=== PATIENT | female | born 1980 | race Caucasian/White ===

== ENCOUNTER 2016-04-15 19:46 | Emergency (ER) | payer MEDICAID ==
[~2016-04-15] VITALS: Ht 157.5 cm; Wt 77.2 kg
[~2016-04-15 19:46] MED LIST: ALB0.5V INH; AMOX500C5 PO; AZIT250T81 PO; BUPR174T PO; CODE118S2 PO; CYCL10TA45 PO; DIPH25CA79 PO; HYDR-3702 PO; HYDR-3708 PO; HYDR-3811 PO; HYDR12TA3 PO; HYDR8TAB24 PO; IBP800T PO; MELO-255 PO; NF-TORA10 PO; NITR100C3 PO; NORG1TAB31 PO; PRD20T GT; PROM25TA14 PO; PS30T PO; SULF-221 PO; SUVO10TA PO
[2016-04-15] MEDS ORDERED: RIZA10TA25 PO (20:24)
[2016-04-15] MEDS ORDERED: HYDR8TAB PO (20:24)
[2016-04-15] MEDS ORDERED: BPR75T PO (20:24)
[2016-04-15] MEDS ORDERED: cefTRIAXone 1 GM (ROCEPHIN) VIAL IM ONE (20:35)
[2016-04-15] MEDS ORDERED: LIDOCAINE PF 1% (XYLOCAINE) 2 ML VIAL INJ ONE (20:40)
[2016-04-15] MEDS ORDERED: CEPH-507 PO (20:41)
[2016-04-15 20:57] VITALS: BP 150/85
[2016-06-04] MEDS ORDERED: TIZA2TAB3 PO (14:08)
[2016-06-04] MEDS ORDERED: NITR100C3 PO (15:48)
== END 2016-04-15 20:58 | disposition home or self-care (01) ==
LOC: ED 19:47
DX: L03.116 Cellulitis of left lower limb (principal)
CPT/HCPCS: 96372; 99282; J0696; J2001; 99283

== ENCOUNTER → 2016-04-22 | Outpatient (CLI) | payer MEDICAID ==
[~2016-04-22] MED LIST changes: +BPR75T PO; +CEPH-507 PO; +HYDR8TAB PO; +RIZA10TA25 PO; +TIZA2TAB3 PO
--- NOTE | 2016-04-22 17:01 | Diagnostic Imaging Report ---
INDICATION: Radiculopathy. MRI of lumbar spine obtained without IV contrast and compared to prior MRI of 11/15/14. FINDINGS: Since the previous study, patient has undergone posterior fusion with placement of disc prosthesis at L5-S1. The canal diameter at the L5-S1 level has significantly improved. There is mild bilateral neuroforaminal narrowing at L5-S1. The remainder of the disc levels appear essentially unremarkable with no disc herniation or bulge or canal or neuroforaminal narrowing. There is a normal appearance of the conus medullaris. IMPRESSION: Postoperative changes at L5-S1. There is no significant canal stenosis. There is mild bilateral neuroforaminal narrowing at L5-S1. Remaining levels appear essentially unremarkable. Dictated by: Dictated on workstation # [id number]
== END ==
LOC: RAD 15:53
PROVIDERS: ATTEND Orthopaedic Surgery
DX: M54.16 Radiculopathy, lumbar region (principal); Z98.890 Other specified postprocedural states
CPT/HCPCS: 72148

== ENCOUNTER 2016-05-21 17:11 | Emergency (ER) | payer MEDICAID ==
[~2016-05-21] VITALS: Ht 160 cm; Wt 80.6 kg
[2016-05-21] MEDS ORDERED: LIDOCAINE/EPINEPHRINE 1%-1:100,000 (XYLOCAINE) 20ML VIAL TOP ONE (17:25)
[2016-05-21] MEDS ORDERED: LIDOCAINE 1% (XYLOCAINE) 20 ML VIAL INJ ONE (17:30)
[2016-05-21] MEDS ORDERED: TETANUS, DIPTHERIA, PERTUSSIS (ADACELL) VACCINE 0.5 ML VIAL IM ONE (17:35)
[2016-05-21 18:07] VITALS: BP 124/84
== END 2016-05-21 18:08 | disposition home or self-care (01) ==
LOC: EDUNIT# 17:11 → ED 17:12
DX: S91.341A Puncture wound with foreign body, right foot, initial encounter (principal); W22.09XA Striking against other stationary object, initial encounter; Y93.01 Activity, walking, marching and hiking; Y92.009 Unspecified place in unspecified non-institutional (private) residence as the place of occurrence of the external cause
CPT/HCPCS: 10120; 28190; 90471; 90715; 99282; 99283

== ENCOUNTER 2016-06-04 13:38 | Emergency (ER) | payer MEDICAID ==
[~2016-06-04] VITALS: Ht 160 cm; Wt 78.6 kg
[2016-06-04 14:21] LABS: BILIRUBIN,URINE Negative (Negative); CLARITY,URINE Slightly Cloudy; COLOR,URINE Orange; GLUCOSE, URINE (UA) Negative (Negative); LEUKOCYTE ESTERASE ,URINE Negative (Negative); PH,URINE 5.5 (5.0 - 8.0); UROBILINOGEN,URINE 0.2 mg/dL (0.2-1.0)
[2016-06-04 14:22] LABS: BASOPHILS % (AUTO) 0 % (0-2); EOSINOPHILS # (AUTO) 0.2 10^3uL; EOSINOPHILS % (AUTO) 1 % (0-4); LYMPHOCYTES # (AUTO) 4.1 X10^3; MEAN CORPUSCULAR HEMOGLOBIN 29.4 PG (26.0-34.0); MEAN CORPUSCULAR HGB CONC 34.5 g/dL (31.0-37.0); MEAN CORPUSCULAR VOLUME 85 FL (80-100); MEAN PLATELET VOLUME 11.3 FL (6.0-9.5); MONOCYTES # (AUTO) 0.7 X10^3; MONOCYTES % (AUTO) 5 % (3-11); NEUTROPHILS # (AUTO) 8.2 X10^3; NEUTROPHILS % (AUTO) 62 % (51-67); PLATELET COUNT 241 10^3uL (150-450); WHITE BLOOD COUNT 13.17 10^3uL (4.0-11.0)
[2016-06-04 14:27] LABS: URINE CENTRIFUGED VOLUME 12 mL
--- NOTE | 2016-06-04 15:27 | NUR ---
dr krystle mann paged
[2016-06-04 16:00] VITALS: BP 159/83
== END 2016-06-04 15:54 | disposition home or self-care (01) ==
LOC: ED 13:39
DX: O23.41 Unspecified infection of urinary tract in pregnancy, first trimester (principal); O20.0 Threatened abortion; Z3A.00 Weeks of gestation of pregnancy not specified
CPT/HCPCS: 36415; 81003; 81015; 84702; 84703; 85025; 87077; 87088; 87186; 99282; 99283

== ENCOUNTER 2016-08-30 22:55 | Emergency (ER) | payer MEDICAID ==
[~2016-08-30] VITALS: Ht 160 cm; Wt 77.2 kg
--- NOTE | 2016-08-30 23:10 | NUR ---
Pt presents to ER ambulatory with c/o back pain. Pt has chronic issues with back pain, reports her pain medications are not working for her now. States she has a pain contract with Dr. Mercedes but doesn't see him until Friday for refills. Pt also reports that she has been working more often recently and this may have contributed to the increase in pain. Admitted to ER room 8.
[2016-08-30] MEDS ORDERED: DEXAMETHASONE 10 MG/ML (DECADRON) VIAL IM ONE (23:20)
[2016-08-30 23:40] VITALS: BP 112/65
== END 2016-08-30 23:33 | disposition home or self-care (01) ==
LOC: ED 22:57
DX: M54.16 Radiculopathy, lumbar region (principal)
CPT/HCPCS: 96372; 99283; J1100; 99282